=== PATIENT | male | born 1970 | race Caucasian/White ===

== ENCOUNTER 2017-07-02 11:59 | Day surgery (SDC) | payer BC ==
--- NOTE | 2017-06-26 21:39 | HP ---
PREOPERATIVE HISTORY AND PHYSICAL: DATE OF ADMISSION/SURGERY: 07/02/17 DATE OF OFFICE VISIT: 06/26/17 ATTENDING SURGEON: Dr. Jimmie Pollard.* (DICTATED BY LIZABETH HEATH) PROCEDURE: Right shoulder manipulation. CHIEF COMPLAINT: Right shoulder. HISTORY OF PRESENT ILLNESS: Alexis is a 46-year-old male, who presents to the clinic for followup of right knee adhesive capsulitis. He has failed conservative measures to include PT and injections. Therefore, agreed to undergo a right shoulder manipulation with Dr. Pollard on 07/02/17. PAST MEDICAL HISTORY: Hyperlipidemia; psoriatic arthritis; diabetes, type 1; hypothyroidism; fibromyalgia. PAST SURGICAL HISTORY: Left knee scope in 2016 and denies complications with anesthesia. MEDICATIONS: 1. Levothyroxine 75 mcg 1 capsule by mouth daily. 2. Otezla 30 mg twice a day. 3. Cosentyx 150 mg/mL, inject 200 mg subcu every 4 weeks. 4. [place] 5/325 one by mouth in the morning, 1 by mouth at noon, 1 by mouth at dinner, and 1 at bedtime as needed. 5. Atorvastatin 10 mg 1 by mouth every day. 6. Lantus 100 units/mL, 15 units b.i.d. 7. NovoLog 100 units/mL, as directed. ALLERGIES: ASPIRIN. FAMILY HISTORY: Positive for diabetes in paternal grandmother, heart disease in paternal grandfather, cancer in mother, and rheumatoid arthritis in maternal grandfather. Denies family history of DVT or PE. SOCIAL HISTORY: He lives with his roommate. He is disabled. He is a former smoker, quit 30 years ago. He reports occasional alcohol consumption. He denies illegal drug use. REVIEW OF SYSTEMS: A 14-point review of systems was reviewed with the patient. Positive for current complaint, otherwise negative. Denies fevers, chills, chest pain, shortness of breath, history of DVT or PE, history of hep C or HIV, and history of bleeding disorder. PHYSICAL EXAMINATION GENERAL: A 46-year-old well-developed, well-nourished male, in no acute distress. Alert and oriented x3. Appropriate mood and affect. Appropriate balance and coordination in the upper extremities. VITAL SIGNS: Height 74, weight 219, blood pressure 110/68, respiratory rate 18 , temperature 97, BMI 28.1. HEENT: Normocephalic, atraumatic. PERRLA. Throat clear. NECK: Supple. PULMONARY: Lungs clear to auscultation bilaterally. No wheezing, rhonchi, or rales. CARDIAC: Regular rate and rhythm. S1, S2. No murmurs, gallops, or rubs. No edema. ABDOMEN: Positive bowel sounds, soft, nontender. NEURO: Alert and oriented x3. Cranial nerves grossly intact. Sensation intact to light touch. MUSCULOSKELETAL: Right upper extremity, skin is intact. No warmth or erythema. Nontender to palpation. Forward flexion and abduction to 90, external rotation to 60, passively not able to move much further, internal rotation to the lateral hip. +2 radial pulse. Sensation intact to light touch distally. IMPRESSION: Right shoulder adhesive capsulitis. PLAN: The patient is scheduled to undergo a right shoulder manipulation with Dr. Pollard on 07/02/17. He will follow up 10 to 14 days postop for range of motion check. He will start PT the day after surgery. Percocet will be used for postop pain management. LIZABETH HEATH [id number]/[facility] #: [id number] JAROD
[~2017-07-02 11:59] MED LIST: Buffered Lidocaine 0.9% SYRIN* 5 ML/SYR SYRINGE INTRADERM ONE
[2017-07-02] MEDS ORDERED: Insulin LISPRO* 1 UNITS UNIT SUBCUT ONE ×2 (13:31→13:34)
[2017-07-02] MEDS ORDERED: Dextrose 50% Syringe 50 ML* 25 GM/50 ML SYRINGE IV PUSH PRN (13:31)
[2017-07-02] MEDS ORDERED: fentaNYL* 50 MCG/ML 2 ML VIAL (100 MCG VIAL) IV PRN (13:36)
[2017-07-02] MEDS ORDERED: DiMENhydriNATE IV* 50 MG/ML VIAL IV PUSH PRN (13:36)
[2017-07-02] MEDS ORDERED: Ondansetron INJ* 2 MG/ML VIAL IV PRN (13:36)
[2017-07-02] MEDS ORDERED: Acetaminophen TAB* 325 MG PO PRN (13:36)
[2017-07-02] MEDS ORDERED: Naloxone* 0.4 MG/ML 1 ML VIAL IV PRN (13:36)
[2017-07-02] MEDS ORDERED: PROCHLORPERAZINE INJ 5 MG/ML 2 ML VIAL IV PRN (13:36)
[2017-07-02] MEDS ORDERED: HYDROcodone/ACETAMIN 5-325 MG* 1 TAB PO PRN (13:36)
[2017-07-02] MEDS ORDERED: Metoclopramide IV* 5 MG/ML 2 ML VIAL ONE (13:51)
[2017-07-02] MEDS ORDERED: Famotidine IV* 10 MG/ML 2 ML (20 mg) ONE (13:51)
[2017-07-02] MEDS ORDERED: Midazolam* 1 MG/ML 2 ML VIAL (2 MG) ONE ×2 (13:51)
[2017-07-02] MEDS ORDERED: Propofol* 10 MG/ML 20 ML BTL IV PUSH ONE (13:51)
[2017-07-02] MEDS ORDERED: Ondansetron INJ* 2 MG/ML VIAL ONE (13:51)
[2017-07-02] MEDS ORDERED: fentaNYL* 50 MCG/ML 2 ML VIAL (100 MCG VIAL) ONE (13:51)
[2017-07-02] MEDS ORDERED: Mivacurium Chloride* 20 MG/10 ML VIAL IV ONE (13:51)
[2017-07-02] MEDS ORDERED: Lidocaine 2% PF * 5 ML VIAL ONE (13:51)
[2017-07-02] MEDS ORDERED: Bupivacaine 0.5% SDV PF* 10-30ML VIAL ONE (14:02)
[2017-07-02] MEDS ORDERED: Bupivacaine 0.25% SDV* 30 ML ONE (14:30)
[2017-07-02] MEDS ORDERED: methylPREDNISolone ACETATE 80* 80 MG/ML 1 ML VIAL ONE (14:30)
[2017-07-02 15:48] VITALS: BP 147/87
--- NOTE | 2017-07-02 15:53 | RAD ---
HISTORY: Postop, right shoulder manipulation COMPARISONS: January 24, 2017 VIEWS: 5, Frontal internal rotation and external rotation views of the right shoulder humerus FINDINGS: BONE DENSITY: Normal. BONES: There is no displaced fracture. JOINTS: There is mild osteoarthritis of the AC joint. ALIGNMENT: There is no dislocation. SOFT TISSUES: Unremarkable. OTHER FINDINGS: None. IMPRESSION: NO ACUTE OSSEOUS INJURY OF THE RIGHT SHOULDER AND HUMERUS. IF SYMPTOMS PERSIST, RECOMMEND REPEAT IMAGING.
--- NOTE | 2017-07-03 17:41 | OP ---
CC: PCP OPERATIVE REPORT: DATE OF : 66 DATE OF SURGERY: 07/02/17 SURGEON: Jimmie Pollard MD AUTHOR AGENT: None available. ANESTHESIOLOGIST: Dr. Martin. ANESTHESIA: General interscalene block. PRE-OP DIAGNOSIS: Right shoulder adhesive capsulitis. POST-OP DIAGNOSIS: Right shoulder adhesive capsulitis. OPERATIVE PROCEDURE: Right shoulder manipulation under anesthesia with subacromial injection with 80 mg of Depo. COMPLICATIONS: None. ESTIMATED BLOOD LOSS: Minimal. INDICATIONS: Alexis is a 47-year-old male who has had frozen shoulder refractory to conservative treatment in the last 10 months to a year. He has had several injections, he has done physical therapy. He initially was noticing improvement, but he is stuck. We talked about the risks and benefits of surgery versus nonoperative treatment. Risks include but are not limited to bleeding, infection, damage to nerves, vessels, surrounding structures, fracture , need for further surgery, scarring, stiffness, incomplete relief of symptoms, recurrent frozen shoulder, risk of anesthesia and risk of DVT. He has elected to proceed. DESCRIPTION OF PROCEDURE: The patient was greeted in the preoperative area by the attending surgeon. Correct extremity was marked and the consent was confirmed. Patient underwent interscalene nerve block by the anesthesiologist and then he was brought back to the operating suite where he was placed in supine position on the operating table. He then underwent general anesthesia with endotracheal intubation, after which appropriate surgical pause was done indicating site and side of procedure. After appropriate surgical pause indicating site and side and procedure, the preoperative range of motion was tested with a passive forward flexion to about 90 and external rotation with elbow at his side to about 30 degrees, abduction to about 70 degrees. At this point, a manipulation was done with stabilizing the scapula and the body. The shoulder was passively taken through a forward flexion to about 165. There was numerous adhesions that were released. The arm was then brought to the side and gently abducted to about 95 degrees. With the arm abducted and the elbow bent, the arm was brought across the body, which released a significant amount of adhesions. They were able to touch the posterior aspect on the contralateral shoulder. Repeat manipulations were done. The shoulder was gently taken through a range of motion again and again passively, this was done until the shoulder felt loose enough. Images were obtained using the OR camera. Once the shoulder was taken through abduction at 90 degrees, an external rotation was done to get the shoulder almost to about 75 degrees, internal rotation to about 90 degrees, passively it was checked to make sure he could reach behind his back. At this point, once the manipulation was complete, decision was made to do another steroid injection; this will be his last. Under sterile conditions, the subacromial space of the right shoulder was injected with 80 mg of Depo-Medrol and 5 cc of Marcaine. He was awoken from anesthesia and transferred to the PACU in stable condition, placed in a regular sling. POSTOPERATIVE PLAN: He will be nonweightbearing. He will be in a sling. He will start physical therapy tomorrow. We checked x-ray to make sure there was no fracture and there was none. I will see the patient back in approximately 2 weeks. [id number]/[facility] #: [id number] MTDD
== END 2017-07-02 16:09 | disposition home or self-care (01) ==
LOC: OR 11:59
PROVIDERS: ATTEND Orthopaedic Surgery
DX: M75.01 Adhesive capsulitis of right shoulder (principal); Z87.891 Personal history of nicotine dependence; E78.5 Hyperlipidemia, unspecified; L40.50 Arthropathic psoriasis, unspecified; E10.9 Type 1 diabetes mellitus without complications; Z79.4 Long term (current) use of insulin; E03.9 Hypothyroidism, unspecified; M79.7 Fibromyalgia; G89.18 Other acute postprocedural pain
CPT/HCPCS: J1040; J2250; J2405; J2704; J2765; J3010

== ENCOUNTER → 2018-12-02 | Day surgery (SDC) | payer MEDICARE ==
--- NOTE | 2018-11-27 14:00 | HP ---
Amended report to enter cosigning physician. PREOPERATIVE HISTORY AND PHYSICAL: DATE OF ADMISSION/SURGERY: 12/02/18 DATE OF OFFICE VISIT: 11/24/18 ATTENDING SURGEON: Dr. Jimmie Pollard* (dictated by LIZABETH Heath). PROCEDURE: Left shoulder arthroscopic surgery, possible arthroscopic lysis of adhesions, decompression. CHIEF COMPLAINT: Left shoulder pain. HISTORY OF PRESENT ILLNESS: Alexis is a 48-year-old male who presents to the clinic for left shoulder pain due to adhesive capsulitis and impingement. He has had continued pain and failed conservative measures; therefore, he has agreed to undergo a left shoulder arthroscopic surgery, possible arthroscopic lysis of adhesions and decompression with Dr. Pollard on 12/02/18. PAST MEDICAL HISTORY: Hyperlipidemia, psoriatic arthritis, type 1 diabetes, hypothyroidism, fibromyalgia. PAST SURGICAL HISTORY: Left knee scope in 2015, right shoulder manipulation. The patient denies prior complications with anesthesia. MEDICATIONS: 1. Omnipod 5-pack, 1 Omnipod every 2 to 3 days as needed. 2. Methotrexate 2.5 mg 1 by mouth a week. 3. Folic acid 1 mg daily. 4. Ergocalciferol 50,000 units 1 tab daily. 5. Atorvastatin 80 mg 1 by mouth in the morning. 6. FreeStyle Che. 7. Levemir 100 units/mL, 34 units twice a day. 8. Aspercreme 4% twice a day to painful joints as needed. 9. KerraFoam translucent dressing every 10 days. 10. Levothyroxine 88 mcg by mouth daily. 11. NovoLog 100 units/mL, 10 to 20 units before each meal. 12. Nucynta 75 mg 1 cap 4 times a day as needed for pain. 13. Ibuprofen 200 mg as needed. ALLERGIES: ASPIRIN. FAMILY HISTORY: Positive for diabetes in paternal grandmother, heart disease in paternal grandfather, cancer in mother, rheumatoid arthritis in maternal grandfather. He denies family history of DVT or PE. SOCIAL HISTORY: He lives with his roommate. He is disabled. He is a former smoker, quit 30 years ago. He reports occasional alcohol consumption. He denies illegal drug use. REVIEW OF SYSTEMS: A 14-point review of systems was reviewed with the patient and positive for current complaint, otherwise negative. Denies fever, chills, chest pain, shortness of breath, history of DVT or PE. He denies history of bleeding disorder. PHYSICAL EXAMINATION GENERAL: A 48-year-old well-developed, well-nourished male, in no acute distress. VITAL SIGNS: Height 74, weight 204, blood pressure 128/80, respiratory rate 18 , temperature 97.3, BMI 26.2. HEENT: Normocephalic, atraumatic. PERRLA. Throat clear. NECK: Supple. PULMONARY: Lungs are clear to auscultation bilaterally. No wheezing, rhonchi, or rales. CARDIO: Regular rate and rhythm. S1, S2. No murmurs, gallops, or rubs. No edema. ABDOMEN: Positive bowel sounds. Soft, nontender. NEURO: Alert and oriented x3. Cranial nerves grossly intact. MUSCULOSKELETAL: Left upper extremity: Skin is intact. No warmth or erythema. Forward flexion to 130, abduction to 100, external rotation to 45. Nontender to palpation. +4/5 strength to rotator cuff testing with pain. Positive impingement, [place], [place], [place]. +2 radial pulse. Sensation intact to light touch distally. DIAGNOSTIC STUDIES: MRI revealed adhesive capsulitis of the left shoulder. IMPRESSION: Left shoulder adhesive capsulitis. PLAN: The patient is scheduled to undergo a left shoulder arthroscopic surgery , possible arthroscopic lysis of adhesions and decompression with Dr. Pollard on 12/02/18. Oxycodone will be used in addition to Nucynta for postop pain control , which was recommended by the pain clinic. He will follow up 10 to 14 days postop for followup and suture removal. LIZABETH HEATH [id number]/[facility] #: [id number] [facility] HOSPITALMikki
[~2018-12-02] MED LIST changes: +Acetaminophen TAB* 325 MG ONE; +Acetaminophen TAB* 325 MG PO PRN; -Buffered Lidocaine 0.9% SYRIN* 5 ML/SYR SYRINGE INTRADERM ONE; +Buffered Lidocaine 1% SYRIN* 1 ML/SYRINGE INTRADERM ONE; +Famotidine IV* 10 MG/ML 2 ML (20 mg) IV ONE; +Famotidine IV* 10 MG/ML 2 ML (20 mg) ONE; +Ketorolac INJ* 30 MG/ML 1 ML VIAL ONE; +Lactated Ringers 1000 ML Bag* 1,000 ML IV SCH; +Lidocaine 1% MPF ** 5 ML VIAL ONE; +Lidocaine 2% PF * 5 ML VIAL ONE; +Midazolam* 1 MG/ML 5 ML VIAL (5 MG) ONE; +Ondansetron INJ* 2 MG/ML VIAL ONE; +Propofol* 10 MG/ML 20 ML BTL ONE; +ROPIVACAINE 5 MG/ML 30 ML BTL (0.5%) ONE; +oxyCODONE TAB* 5 MG TAB PO PRN
[2018-12-02 10:30] VITALS: BP 134/95
--- NOTE | 2018-12-02 12:37 | OP ---
CC: PCP OPERATIVE REPORT: DATE OF OPERATION: 12/02/18 DATE OF : 66 SURGEON: Jimmie Pollard MD. LOT BOSS: None available. ANESTHESIOLOGIST: Dr. Chen. ANESTHESIA: General with interscalene block. PRE-OP DIAGNOSIS: Left shoulder adhesive capsulitis. POST-OP DIAGNOSIS: Left shoulder adhesive capsulitis. OPERATIVE PROCEDURE: Left shoulder manipulation under anesthesia. COMPLICATIONS: None. ESTIMATED BLOOD LOSS: None. INDICATIONS: Alexis Engel is a 48-year-old male with type 1 diabetes and he has psoriatic arthritis. He presents with left shoulder loss of motion and pain. He has failed conservative management inclu ding injections, physical therapy, anti- inflammatories. He has elected to proceed with surgical lani atment. After extensive discussion, we elected to proceed with manipulation under anesthesia because of the risk with the arthroscopic procedure he may have issues healing and we both between the patie nt and I decided to try manipulation first to see if he recovers and if he does not, then we could co nsider a more invasive treatment. After extensive discussion of the risks and benefits, he elected to proceed with surgical treatment. DESCRIPTION OF PROCEDURE: The patient was greeted in the preoperative area by the attending surgeon. Consent was confirmed. The patient underwent interscalene nerve block by the anesthesiologist. Af ter the block, the patient was brought back to the suite, was placed in supine position on the operat ing room table. He then underwent general anesthesia and LMA intubation, after which an appropriate surgical pause was done indicating site and side of procedure. No antibiotics were given. The patie nt then underwent gentle manipulation. First, range of motion was assessed and images were taken. H e was able to forward flex to 90, abduct to about 70, externally rotate to about 25. After a gentle manipulation, he was able to forward flex to about 160, abduct to about 150, externally rotate to abo ut 65, and then a cross body adduction was done. All the adhesions were released successfully. He i s able to have supple range of motion. After the procedure was completed, images were obtained of hi s range of motion and was placed in a sling. He was awoken from anesthesia, transferred to PACU in st able condition. POSTOPERATIVE PLAN: He will start range of motion tomorrow with therapy. He will begin passive rang e of motion today. Once he is more awake, he will be in the sling until the block wears off. He demetrius l be discharged on pain medication. I will see the patient back in 10 to 14 days. [id number]/[facility] #: [id number]
== END | disposition home or self-care (01) ==
LOC: OR 06:15
PROVIDERS: ATTEND Orthopaedic Surgery
DX: M75.02 Adhesive capsulitis of left shoulder (principal); G89.18 Other acute postprocedural pain; L40.50 Arthropathic psoriasis, unspecified; E10.9 Type 1 diabetes mellitus without complications; Z79.4 Long term (current) use of insulin; E78.5 Hyperlipidemia, unspecified; E03.9 Hypothyroidism, unspecified; M79.7 Fibromyalgia; G47.33 Obstructive sleep apnea (adult) (pediatric); Z87.891 Personal history of nicotine dependence
CPT/HCPCS: A9270-GY; J1885; J2250; J2405; J2704; J2795

== ENCOUNTER 2019-03-08 07:27 | Day surgery (SDC) | payer MEDICARE, OTHER ==
[~2019-03-08 07:27] MED LIST changes: -Acetaminophen TAB* 325 MG ONE; -Acetaminophen TAB* 325 MG PO PRN; -Famotidine IV* 10 MG/ML 2 ML (20 mg) ONE; -Ketorolac INJ* 30 MG/ML 1 ML VIAL ONE; -Lidocaine 1% MPF ** 5 ML VIAL ONE; -Lidocaine 2% PF * 5 ML VIAL ONE; -Midazolam* 1 MG/ML 5 ML VIAL (5 MG) ONE; -Ondansetron INJ* 2 MG/ML VIAL ONE; -Propofol* 10 MG/ML 20 ML BTL ONE; -ROPIVACAINE 5 MG/ML 30 ML BTL (0.5%) ONE; -oxyCODONE TAB* 5 MG TAB PO PRN
[2019-03-08] MEDS ORDERED: Famotidine IV* 10 MG/ML 2 ML (20 mg) ONE (08:04)
[2019-03-08] MEDS ORDERED: ceFAZolin 2 GM PREMIX in ORs 2 GM/50 ML BAG ONE (08:11)
[2019-03-08] MEDS ORDERED: Midazolam* 1 MG/ML 5 ML VIAL (5 MG) ONE (09:15)
[2019-03-08] MEDS ORDERED: ROPIVACAINE 5 MG/ML 30 ML BTL (0.5%) ONE (09:21)
[2019-03-08] MEDS ORDERED: Lidocaine 1% MPF ** 5 ML VIAL ONE (09:22)
[2019-03-08] MEDS ORDERED: Ropivacaine 0.2% * 2 MG/ML VIAL ONE (09:24)
[2019-03-08] MEDS ORDERED: fentaNYL* 50 MCG/ML 2 ML VIAL (100 MCG VIAL) ONE ×2 (09:50→10:07)
[2019-03-08] MEDS ORDERED: Propofol* 10 MG/ML 20 ML BTL ONE (10:05)
[2019-03-08] MEDS ORDERED: Ondansetron INJ* 2 MG/ML VIAL ONE (10:05)
[2019-03-08] MEDS ORDERED: Ketorolac INJ* 30 MG/ML 1 ML VIAL ONE (10:05)
[2019-03-08] MEDS ORDERED: Succinylcholine* 20 MG/ML 10 ML VIAL ONE (10:05)
[2019-03-08] MEDS ORDERED: Lidocaine 2% PF * 5 ML VIAL ONE (10:06)
[2019-03-08] MEDS ORDERED: methylPREDNISolone ACETATE 80* 80 MG/ML 1 ML VIAL ONE (10:10)
[2019-03-08] MEDS ORDERED: DiMENhydriNATE IV* 50 MG/ML VIAL IV PUSH PRN (10:17)
[2019-03-08] MEDS ORDERED: Naloxone* 0.4 MG/ML 1 ML VIAL IV PRN (10:17)
[2019-03-08] MEDS ORDERED: HYDROmorphone INJ1* 1 MG/ML SYRINGE IV PRN (10:17)
[2019-03-08] MEDS ORDERED: HYDROcodone/ACETAMIN 5-325 MG* 1 TAB PO PRN (10:17)
[2019-03-08 11:17] VITALS: BP 126/78
--- NOTE | 2019-03-29 15:21 | OP ---
OPERATIVE REPORT: DATE OF OPERATION: 03/08/19 DATE OF : 66 SURGEON: Jimmie Pollard MD OPTOMETRY ASSISTANT: LIZABETH Trinidad An assistant professor of biology was needed for the entirety of the case to help with positioning, retraction, and was ut ilized throughout all portions of the case. ANESTHESIOLOGIST: Dr. Chen. ANESTHESIA: General with interscalene block. PRE-OP DIAGNOSIS: Left shoulder adhesive capsulitis. POST-OP DIAGNOSIS: Left shoulder adhesive capsulitis. OPERATIVE PROCEDURE: Left shoulder arthroscopy with lysis of adhesions, manipulation under anesthesi a, biceps tenotomy, and intraarticular injection with 80 mg of Depo-Medrol. COMPLICATIONS: None. IMPLANTS: None. DISPOSITION: Stable. INDICATIONS: Alexis Engel is a 48-year-old male, who has had persistent left shoulder pain for severa l months. We did manipulation under anesthesia and it did not take away his symptoms. He continued to have persistent pain. After extensive discussion of the risks and benefits of operative versus no noperative treatment, he underwent medical risk optimization and then we offered him left shoulder ar throscopy with lysis of adhesions, manipulation, and decompression. DESCRIPTION OF PROCEDURE: The patient was greeted in the preoperative area by the attending surgeon. Correct extremity was marked and consent was confirmed. The patient was brought back to the operat ing suite where he was placed in supine position on the operating table. He then underwent general a nesthesia and endotracheal intubation, after which he was placed in the right lateral decubitus posit ion. All bony prominences were padded. He was secured with a pegboard. The left arm was draped uns terile with 10 pounds of traction. The left shoulder was then prepped and draped in the usual steril e fashion beginning with chlorhexidine soap, scrub, and alcohol wipe, and a final prep with ChloraPre p. After appropriate surgical pause indicating side, site, procedure, and administration of antibiotics, the standard posterolateral portal was made sharply with 11-blade. Prior to the incision, gentle ma nipulation under anesthesia was done and forward flexion, I was able to get to about 170, abduction t o about 150, external rotation to about 60. The 11-blade was used to make a posterolateral incision. The scope was introduced into the joint and joint was examined. There was abundant significant synovitis. There was a very tight joint as expec tyesha. There was evidence of biceps insertion, which was very erythematous and damaged. The anterior portal was made in an outside-in fashion. The shaver was used to debride the unstable flaps back. C are was taken to maintain hemostasis. The biceps was then tenotomized. There was abundant anterior scar tissue that was present. There were some mild glenohumeral changes with grade 0 changes on the glenoid. The subscap was intact. The undersurface of the supraspinatus also was intact. The electr ocautery device was then used to release lot of the scar anteriorly with care not to damage the subsc ap. Some of the middle glenohumeral ligament was also released as it was scarred as well as the inte rval scar. After this was complete, the joint was found to be more distended and more visualized. I was able to see the inferior recess, which was intact. Attention was then directed to the subacromi al space. With the scope positioned in the subacromial space, the lateral portal was made in an outside-in formerly [facility] ion. There was abundant synovitis that was present there as well. This was debrided back using the shaver. The undersurface of the acromion was skeletonized using electrocautery device and a 4-0 oval yajaira was then used to do an acromioplasty. After this was complete, an 18-gauge spinal needle was t hen placed anteriorly into the joint under visualization for later injection. The wounds were then c opiously irrigated with sterile saline. The portals were closed with 3-0 nylon in interrupted fashio n. Then, the joint was intra-articularly injected with 80 mg of Depo-Medrol. Sterile dressings were applied. A Cryo/Cuff and a regular sling were applied. He was awoken from anesthesia and transferr ed to the PACU in stable condition. POSTOPERATIVE PLAN: He will be nonweightbearing. He will be discharged on pain medication. We will have him watch his sugars closely. He is in the pain clinic and we have approved pain medication wi th discussion with them. DVT prophylaxis was considered, but deferred due to no previous personal or family history. I will see the patient back in 10 to 14 days. [id number]/[facility] #: [id number]
== END 2019-03-08 11:40 | disposition home or self-care (01) ==
LOC: OREAST 07:27
PROVIDERS: ATTEND Orthopaedic Surgery
DX: M75.02 Adhesive capsulitis of left shoulder (principal); G89.18 Other acute postprocedural pain; G47.33 Obstructive sleep apnea (adult) (pediatric); E78.5 Hyperlipidemia, unspecified; E10.9 Type 1 diabetes mellitus without complications; Z79.4 Long term (current) use of insulin; Z96.41 Presence of insulin pump (external) (internal); G89.29 Other chronic pain
CPT/HCPCS: J0330; J0690; J1040; J1885; J2250; J2405; J2704; J2795; J3010